=== PATIENT | male | born 1980 | race Caucasian/White ===

== ENCOUNTER 2018-12-18 01:08 | Emergency (ER) | payer BC, MEDICAID ==
[~2018-12-18] VITALS: Ht 167.6 cm; Wt 79.4 kg
[2018-12-18 01:28] LABS: BASOPHILS # (AUTO) 0.1 /CMM (0.0-0.2); BASOPHILS % (AUTO) 0.9 % (0.0-2.0); HEMATOCRIT 46 % (39-51); HEMOGLOBIN 15.6 g/dL (13.5-17.5); LYMPHOCYTES # (AUTO) 2.7 /CMM (0.8-4.8); LYMPHOCYTES % (AUTO) 33.9 % (20.0-44.0); MEAN CORPUSCULAR HGB CONC 34 g/dl (31.0-36.0); MEAN CORPUSCULAR VOLUME 91 fL (80-96); MONOCYTES # (AUTO) 0.8 /CMM (0.1-1.30); MONOCYTES % (AUTO) 10.3 % (2.0-12.0); NEUTROPHILS # (AUTO) 4.3 /CMM (1.8-8.9); NEUTROPHILS % (AUTO) 52.9 % (43.0-81.0); PLATELET COUNT (AUTO) 257 /CMM (150-450); RED BLOOD CELL COUNT(AUTO) 5.05 MIL/uL (4.5-6.0); WHITE BLOOD COUNT (AUTO) 8.1 K/uL (4.3-11.0)
[2018-12-18 01:34] LABS: CALCIUM, SERUM 8.8 mg/dL (8.5-10.1); CREATININE 1.4 mg/dL (0.6-1.3); POTASSIUM 3.7 mmol/L (3.5-5.1)
--- NOTE | 2018-12-18 01:37 | NUR ---
PBIBS C/C SUDDEN L FLANK PAIN X1HR AGO, -N/V. NO HX OF STONES. LAWS DRAWN AT BEDSIDE, AWAITING MED EVAL
[2018-12-18 01:40] LABS: ALBUMIN 3.7 g/dL (3.4-5.0); BILIRUBIN,DIRECT 0.1 mg/dL (0.0-0.2); BILIRUBIN,TOTAL 0.2 mg/dL (0.2-1.0); TOTAL PROTEIN, SERUM 7.4 g/dL (6.4-8.2)
[2018-12-18 02:11] LABS: APPEARANCE,URINE Slightly Cloudy (CLEAR); BILIRUBIN,URINE Negative (NEGATIVE); BLOOD, URINE Large Ery/uL (NEGATIVE); COLOR,URINE Yellow (YELLOW); KETONES,URINE Trace (NEGATIVE); LEUKOCYTE ESTERASE ,URINE Negative (NEGATIVE); NITRITE, URINE Negative (NEGATIVE); PH,URINE 5.5 (5.0-8.0); PROTEIN,URINE 30 mg/dl (NEGATIVE); UGLUCOSE Negative (NEGATIVE)
[2018-12-18 02:37] LABS: BACTERIA,URINE Few /HPF (None Seen); RBC,URINE TOO NUMEROUS TO COUN /HPF (0-2); SQUAMOUS EPITHELIAL CELL,UR Rare /HPF (None Seen)
[2018-12-18] MEDS ORDERED: KETOROLAC TROMETHAMINE 15 MG/ML VIAL ONE (02:59)
[2018-12-18] MEDS ORDERED: KETOROLAC TROMETHAMINE INJ 30 MG/ML VIAL IV ONE (03:00)
[2018-12-18] MEDS ORDERED: IV NS 0.9% 1,000 ML BAG IV ONE (03:00)
--- NOTE | 2018-12-18 03:45 | NUR ---
PT TAKEN TO CT
[2018-12-18 05:00] VITALS: BP 112/12
--- NOTE | 2018-12-18 05:05 | NUR ---
Patient discharged to home in stable condition. Written and verbal after care instructions given. Patient verbalizes understanding of instruction.
== END 2018-12-18 05:05 | disposition home or self-care (01) ==
LOC: ER 01:10
DX: N13.2 Hydronephrosis with renal and ureteral calculous obstruction (principal); R10.9 Unspecified abdominal pain
CPT/HCPCS: 36415; 74176; 80048; 80076; 81001; 83690; 85025; 96374; 99284; J1885; J7030; 81000-TC

== ENCOUNTER 2020-05-15 23:03 | Emergency (ER) | payer BC ==
[~2020-05-15] VITALS: Ht 167.6 cm; Wt 79.4 kg
--- NOTE | 2020-05-16 | NUR ---
TO ER [facility] AMBULATORY C/O R SIDED BACK PAIN WITH PAIN AND BURNING UPON URINATION SINCE LAST NIGHT. PT AAOX4 NO ACUTE DISTRESS NOTED, RESP EVEN AND UNLABORED. URINE SAMPLE COLLECTED AND SENT TO LAB. PENDING ER MD KAUFFMAN.
--- NOTE | 2020-05-16 00:20 | NUR ---
LABS COLLECTED, SENT TO LAB.
[2020-05-16] MEDS ORDERED: KETOROLAC TROMETHAMINE INJ 30 MG/ML VIAL IV ONE (00:30)
[2020-05-16] MEDS ORDERED: HYDROMORPHONE 1 MG/1 ML DISP.SYRIN IV ONE (00:30)
--- NOTE | 2020-05-16 00:30 | NUR ---
PT MEDICATED BY REINALDO JOYCE PER CELI REDDY ORDER.
[2020-05-16] MEDS ORDERED: HYDROMORPHONE 1 MG/1 ML DISP.SYRIN ONE (00:31)
[2020-05-16] MEDS ORDERED: KETOROLAC TROMETHAMINE INJ 30 MG/ML VIAL ONE (00:31)
[2020-05-16 00:36] LABS: BASOPHILS # (AUTO) 0.1 /CMM (0.0-0.2); BASOPHILS % (AUTO) 0.9 % (0.0-2.0); EOSINOPHILS % (AUTO) 2.9 % (0.0-6.0); HEMATOCRIT 46 % (39-51); HEMOGLOBIN 15.6 g/dL (13.5-17.5); LYMPHOCYTES # (AUTO) 2.4 /CMM (0.8-4.8); LYMPHOCYTES % (AUTO) 42.1 % (20.0-44.0); MEAN CORPUSCULAR HGB CONC 34 g/dl (31.0-36.0); MEAN CORPUSCULAR VOLUME 92 fL (80-96); MONOCYTES # (AUTO) 0.6 /CMM (0.1-1.30); NEUTROPHILS # (AUTO) 2.5 /CMM (1.8-8.9); NEUTROPHILS % (AUTO) 44.1 % (43.0-81.0); PLATELET COUNT (AUTO) 238 /CMM (150-450); RED BLOOD CELL COUNT(AUTO) 4.95 MIL/uL (4.5-6.0); WHITE BLOOD COUNT (AUTO) 5.8 K/uL (4.3-11.0)
[2020-05-16 00:39] LABS: BILIRUBIN,URINE Negative (NEGATIVE); COLOR,URINE YELLOW (YELLOW); LEUKOCYTE ESTERASE ,URINE Negative (NEGATIVE); NITRITE, URINE Negative (NEGATIVE); PROTEIN,URINE Negative (NEGATIVE); UGLUCOSE Negative (NEGATIVE); UROBILINOGEN,URINE 0.2 EU/dL (0.2)
--- NOTE | 2020-05-16 00:39 | NUR ---
URINE COLLECTED, SENT TO LAB.
[2020-05-16 00:50] LABS: CALCIUM, SERUM 8.5 mg/dL (8.5-10.1); CREATININE 1.7 mg/dL (0.6-1.3); POTASSIUM 4.1 mmol/L (3.5-5.1)
[2020-05-16 01:06] LABS: BACTERIA,URINE None seen /HPF (None Seen); SQUAMOUS EPITHELIAL CELL,UR Rare /HPF (None Seen); WBC,URINE 0-2 /HPF (0-3)
--- NOTE | 2020-05-16 01:07 | NUR ---
US AT BEDSIDE
--- NOTE | 2020-05-16 02:23 | NUR ---
IV removed. Catheter intact and site benign. Pressure and 4x4 applied to site. No bleeding noted.
--- NOTE | 2020-05-16 02:23 | NUR ---
Patient discharged to home in stable condition. Written and verbal after care instructions given. Patient verbalizes understanding of instruction and RX. Pt ambulated out of E.D. VSS. Denies pain.
[2020-05-16 02:24] VITALS: BP 128/68
== END 2020-05-16 02:25 | disposition home or self-care (01) ==
LOC: ER 23:11
DX: N13.2 Hydronephrosis with renal and ureteral calculous obstruction (principal)
CPT/HCPCS: 36415; 76770; 80048; 81001; 85025; 96374; 96375; 99284; J1170; J1885

== ENCOUNTER 2020-07-06 22:07 | Emergency (ER) | payer BC ==
[~2020-07-06] VITALS: Ht 167.6 cm; Wt 81.6 kg
--- NOTE | 2020-07-06 22:22 | NUR ---
PT BIBSELF C/O CHEST PAIN SINCE THIS MORNING. DESCRIBES PAIN PRESSURE, CONSTANT, AND RADIATING TO BILATERAL LOWER RIBS, WORSE WITH INSPIRATION. PT AAOX4. VITAL SIGNS STABLE. RESPIRATIONS EVEN AND UNLABORED. SKIN WARM AND INTACT. AMBULATORY WITH STEADY GAIT. NO ACUTE DISTRESS NOTED AT THIS TIME. PLACED IN GOWN AND ON CONTINUOUS ASSEMBLY OPERATOR AND PULSE OX, WILL CONTINUE TO MONITOR
--- NOTE | 2020-07-06 22:28 | NUR ---
RADIOLOGY AT BEDSIDE FOR CXR
--- NOTE | 2020-07-06 22:30 | NUR ---
IV INITIATED RAC 18G. LABS DRAWN FROM SITE. VP CARDIOVASCULAR SERVICE LINE AT BEDSIDE FOR COLLECTION. IV INTACT AND PATENT, PLACED ON SALINE LOCK
[2020-07-06 22:38] LABS: BASOPHILS # (AUTO) 0.1 /CMM (0.0-0.2); BASOPHILS % (AUTO) 1.1 % (0.0-2.0); EOSINOPHILS % (AUTO) 0.7 % (0.0-6.0); HEMATOCRIT 49 % (39-51); LYMPHOCYTES # (AUTO) 1.5 /CMM (0.8-4.8); LYMPHOCYTES % (AUTO) 15.4 % (20.0-44.0); MEAN CORPUSCULAR HGB CONC 33 g/dl (31.0-36.0); MEAN CORPUSCULAR VOLUME 92 fL (80-96); MONOCYTES # (AUTO) 0.5 /CMM (0.1-1.30); MONOCYTES % (AUTO) 5.1 % (2.0-12.0); NEUTROPHILS # (AUTO) 7.4 /CMM (1.8-8.9); NEUTROPHILS % (AUTO) 77.7 % (43.0-81.0); PLATELET COUNT (AUTO) 304 /CMM (150-450); RED BLOOD CELL COUNT(AUTO) 5.32 MIL/uL (4.5-6.0); WHITE BLOOD COUNT (AUTO) 9.5 K/uL (4.3-11.0)
[2020-07-06 22:48] LABS: CALCIUM, SERUM 8.4 mg/dL (8.5-10.1); CARBON DIOXIDE 29 mmol/L (21-32); CHLORIDE 104 mmol/L (98-107); CREATININE 1.2 mg/dL (0.6-1.3); GLUCOSE 92 mg/dL (74-106); POTASSIUM 3.8 mmol/L (3.5-5.1); SODIUM SERUM 141 mmol/L (136-145); UREA NITROGEN, BLOOD 18 mg/dL (7-18)
[2020-07-06] MEDS ORDERED: ASPIRIN 325 MG TABLET PO ONE (23:00)
[2020-07-06 23:01] LABS: ALANINE AMINOTRANSFERASE 85 U/L (12-78); ALBUMIN 3.5 g/dL (3.4-5.0); ALKALINE PHOSPHATASE 51 U/L (46-116); ASPARTATE AMINOTRANSFERASE 41 U/L (15-37); B-TYPE NATRIURETIC PEPTIDE 10 PG/ML (0-125); BILIRUBIN,DIRECT 0.1 mg/dL (0.0-0.2); BILIRUBIN,TOTAL 0.4 mg/dL (0.2-1.0); TOTAL PROTEIN, SERUM 7.3 g/dL (6.4-8.2)
[2020-07-06] MEDS ORDERED: ASPIRIN 325 MG TABLET ONE (23:05)
--- NOTE | 2020-07-06 23:21 | NUR ---
IV removed. Catheter intact and site benign. Pressure and 4x4 applied to site. No bleeding noted.
--- NOTE | 2020-07-06 23:21 | NUR ---
Patient discharged to home in stable condition. Written and verbal after care instructions given. Patient verbalizes understanding of instruction.
[2020-07-06 23:31] VITALS: BP 121/86
== END 2020-07-06 23:31 | disposition home or self-care (01) ==
LOC: ER 22:13
DX: R07.89 Other chest pain (principal)
CPT/HCPCS: 36415; 71045-TC; 80048-TC; 80076-TC; 83880; 84484-TC; 85025-TC; 85730-TC

== ENCOUNTER 2020-07-16 19:07 | Emergency (ER) | payer BC ==
[~2020-07-16] VITALS: Ht 167.6 cm; Wt 86.6 kg
--- NOTE | 2020-07-16 19:20 | NUR ---
PT BIBSELF C/O RLQ PAIN THAT RADIATES TO RT FLANK. PT AAOX4. PT BREATHING EVENLY AND UNLABORED. PT STATES HE HAS HX OF KIDNEY STONES AND THE PAIN STARTED 40MIN AGO. PT SKIN WARM, DRY, AND INTACT. UPON ASSESSMENT PT MOANING AND HOLDING HIS LEFT SIDE. 18G RT AC IV INITATED. BLOOD OBTAINED AND SENT TO LAB. ATTACHED TO MONITOR AND POX. GIVEN BLANKET AND CALL LIGHT WITHIN REACH
--- NOTE | 2020-07-16 19:20 | NUR ---
Note undone in EDM - 07/16/20 at 1936 by TIFFANIE PT BIBSELF C/O RLQ PAIN THAT RADIATES TO RT FLANK. PT AAOX4. PT STATES HE HAS HX OF KIDNEY STONES AND THE PAIN STARTED 40MIN AGO. PT SKIN WARM, DRY, AND INTACT. UPON ASSESSMENT PT MOANING AND HOLDING HIS LEFT SIDE. 18G RT AC IV INITATED. BLOOD OBTAINED AND SENT TO LAB. ATTACHED TO MONITOR AND POX. GIVEN BLANKET AND CALL LIGHT WITHIN REACH
[2020-07-16] MEDS ORDERED: ONDANSETRON HCL/PF 4 MG/2 ML VIAL ONE (19:22)
[2020-07-16] MEDS ORDERED: MORPHINE SULFATE INJ 4 MG/ML DISP.SYRIN ONE (19:22)
--- NOTE | 2020-07-16 19:28 | NUR ---
US AT BEDSIDE
[2020-07-16 19:30] LABS: BASOPHILS # (AUTO) 0.1 /CMM (0.0-0.2); BASOPHILS % (AUTO) 1.1 % (0.0-2.0); EOSINOPHILS % (AUTO) 10.9 % (0.0-6.0); HEMATOCRIT 47 % (39-51); HEMOGLOBIN 15.8 g/dL (13.5-17.5); LYMPHOCYTES # (AUTO) 2.7 /CMM (0.8-4.8); LYMPHOCYTES % (AUTO) 26.4 % (20.0-44.0); MEAN CORPUSCULAR HGB CONC 33 g/dl (31.0-36.0); MEAN CORPUSCULAR VOLUME 91 fL (80-96); MONOCYTES # (AUTO) 0.8 /CMM (0.1-1.30); MONOCYTES % (AUTO) 7.6 % (2.0-12.0); NEUTROPHILS # (AUTO) 5.4 /CMM (1.8-8.9); PLATELET COUNT (AUTO) 315 /CMM (150-450); RED BLOOD CELL COUNT(AUTO) 5.21 MIL/uL (4.5-6.0); WHITE BLOOD COUNT (AUTO) 10.1 K/uL (4.3-11.0)
[2020-07-16] MEDS ORDERED: ONDANSETRON HCL/PF 4 MG/2 ML VIAL IVP ONE (19:30)
[2020-07-16] MEDS ORDERED: MORPHINE SULFATE INJ 2 MG/ML DISP.SYRIN IV ONE (19:30)
[2020-07-16] MEDS ORDERED: IV NS 0.9% 1,000 ML BAG IV ONE (19:30)
[2020-07-16 19:36] LABS: CALCIUM, SERUM 9.1 mg/dL (8.5-10.1); CREATININE 1.6 mg/dL (0.6-1.3); POTASSIUM 4.1 mmol/L (3.5-5.1)
[2020-07-16 19:42] LABS: ALBUMIN 3.7 g/dL (3.4-5.0); BILIRUBIN,DIRECT 0.1 mg/dL (0.0-0.2); BILIRUBIN,TOTAL 0.4 mg/dL (0.2-1.0)
[2020-07-16] MEDS ORDERED: HYDROMORPHONE 1 MG/1 ML DISP.SYRIN ONE (19:58)
[2020-07-16] MEDS ORDERED: KETOROLAC TROMETHAMINE 15 MG/ML VIAL ONE (19:58)
[2020-07-16] MEDS ORDERED: HYDROMORPHONE 1 MG/1 ML DISP.SYRIN IM ONE (20:00)
[2020-07-16] MEDS ORDERED: KETOROLAC TROMETHAMINE INJ 30 MG/ML VIAL IV ONE (20:00)
--- NOTE | 2020-07-16 20:50 | NUR ---
URINE OBTAINED AND SENT TO LAB
[2020-07-16 21:07] LABS: BILIRUBIN,URINE Negative (NEGATIVE); COLOR,URINE YELLOW (YELLOW); LEUKOCYTE ESTERASE ,URINE Negative (NEGATIVE); NITRITE, URINE Negative (NEGATIVE); PROTEIN,URINE 100 mg/dl (NEGATIVE); UGLUCOSE Negative (NEGATIVE)
[2020-07-16 21:22] LABS: BACTERIA,URINE Rare /HPF (None Seen); RBC,URINE 21-50 /HPF (0-2); SQUAMOUS EPITHELIAL CELL,UR Few /HPF (None Seen); WBC,URINE NONE SEEN /HPF (0-3)
[2020-07-16] MEDS ORDERED: ACET-2605 PO (22:03)
[2020-07-16] MEDS ORDERED: TAMS-12 PO (22:03)
[2020-07-16] MEDS ORDERED: TRAM50TA2 PO (22:03)
--- NOTE | 2020-07-16 22:26 | NUR ---
Patient discharged to home in stable condition. Written and verbal after care instructions given. Patient verbalizes understanding of instruction.IV removed. Catheter intact and site benign. Pressure and 4x4 applied to site. No bleeding noted. Pt ambulatory with a steady gait
[2020-07-16 22:38] VITALS: BP 140/79
== END 2020-07-16 22:26 | disposition home or self-care (01) ==
LOC: ER 19:09
DX: N23 Unspecified renal colic (principal); Z87.442 Personal history of urinary calculi; Z79.899 Other long term (current) drug therapy
CPT/HCPCS: 36415; 76770; 80048; 80076; 81001; 83690; 85025; 96361; 96372; 96374; 96375; 99285; J1170; J1885; J2270; J2405; J7030

== ENCOUNTER 2020-07-20 15:00 | Emergency (ER) | payer BC ==
[~2020-07-20] VITALS: Ht 167.6 cm; Wt 86.6 kg
[2020-07-20 15:00] VITALS: BP 138/82
[~2020-07-20 15:00] MED LIST: ACET-2605 PO; TAMS-12 PO; TRAM50TA2 PO
--- NOTE | 2020-07-20 15:35 | NUR ---
SEEN AND EXAMINED BY .
[2020-07-20] MEDS ORDERED: KETOROLAC TROMETHAMINE INJ 30 MG/ML VIAL ONE (15:41)
--- NOTE | 2020-07-20 15:50 | NUR ---
MASTER FIRE CONTROL TECHNICIAN AT BEDSIDE FOR XRAY.
[2020-07-20] MEDS ORDERED: KETOROLAC TROMETHAMINE INJ 30 MG/ML VIAL IM ONE (16:00)
--- NOTE | 2020-07-20 17:22 | NUR ---
Patient discharged to home in stable condition. Written and verbal after care instructions given. Patient verbalizes understanding of instruction.
== END 2020-07-20 17:22 | disposition home or self-care (01) ==
LOC: ER 15:03
DX: M13.831 Other specified arthritis, right wrist (principal); Z87.442 Personal history of urinary calculi; Z79.899 Other long term (current) drug therapy
CPT/HCPCS: 73110; 96372; 99283; J1885

== ENCOUNTER 2020-08-10 19:56 | Emergency (ER) | payer BC ==
[~2020-08-10] VITALS: Ht 167.6 cm; Wt 88.5 kg
--- NOTE | 2020-08-10 20:20 | NUR ---
THE PATIENT BIBSELF FOR C/O R FLANK PAIN, - HEMATURIA OR DYSURIA. PMH OF RENAL STONE. THE PATIENT RATES PAIN /10. DENIES SOB. RESPIRATION REGULAR AND UNLABORED. THE PATIENT IS PLACED ON MONITOR. WARM BLANKET PROVDIED FOR COMFORT. WILL CONTINUE TO MONITOR.
[2020-08-10] MEDS ORDERED: ONDANSETRON HCL/PF 4 MG/2 ML VIAL ONE (20:48)
[2020-08-10] MEDS ORDERED: MORPHINE SULFATE INJ 2 MG/ML DISP.SYRIN ONE (20:48)
[2020-08-10] MEDS ORDERED: KETOROLAC TROMETHAMINE 15 MG/ML VIAL ONE (20:48)
[2020-08-10] MEDS ORDERED: KETOROLAC TROMETHAMINE INJ 30 MG/ML VIAL IV ONE (21:00)
[2020-08-10] MEDS ORDERED: MORPHINE SULFATE INJ 2 MG/ML DISP.SYRIN IV ONE (21:00)
[2020-08-10] MEDS ORDERED: ONDANSETRON HCL/PF - ER 4 MG/2 ML VIAL IV ONE (21:00)
[2020-08-10] MEDS ORDERED: IV NS 0.9% 1,000 ML IV ONE (21:00)
--- NOTE | 2020-08-10 21:00 | NUR ---
BLOOD COLLECTED AND TAKEN IT TO THE LAB
--- NOTE | 2020-08-10 21:01 | NUR ---
URINE COLLECTED AND TAKEN IT TO THE LAB
[2020-08-10 21:09] LABS: BASOPHILS % (AUTO) 0.5 % (0.0-2.0); EOSINOPHILS % (AUTO) 5.2 % (0.0-6.0); HEMATOCRIT 47 % (39-51); HEMOGLOBIN 15.6 g/dL (13.5-17.5); LYMPHOCYTES % (AUTO) 11.4 % (20.0-44.0); MEAN CORPUSCULAR HGB CONC 33 g/dl (31.0-36.0); MEAN CORPUSCULAR VOLUME 89 fL (80-96); MONOCYTES # (AUTO) 0.4 /CMM (0.1-1.30); MONOCYTES % (AUTO) 4.8 % (2.0-12.0); NEUTROPHILS # (AUTO) 6.8 /CMM (1.8-8.9); NEUTROPHILS % (AUTO) 78.1 % (43.0-81.0); PLATELET COUNT (AUTO) 254 /CMM (150-450); RED BLOOD CELL COUNT(AUTO) 5.29 MIL/uL (4.5-6.0); WHITE BLOOD COUNT (AUTO) 8.7 K/uL (4.3-11.0)
[2020-08-10 21:22] LABS: BILIRUBIN,URINE SMALL (NEGATIVE); COLOR,URINE RED (YELLOW); LEUKOCYTE ESTERASE ,URINE NEGATIVE (NEGATIVE); NITRITE, URINE NEGATIVE (NEGATIVE); PH,URINE 6.5 (5.0-8.0); PROTEIN,URINE TRACE mg/dl (NEGATIVE); UGLUCOSE NEGATIVE (NEGATIVE)
[2020-08-10 21:23] LABS: BACTERIA,URINE Few /HPF (None Seen); RBC,URINE TOO NUMEROUS TO COUN /HPF (0-2); SQUAMOUS EPITHELIAL CELL,UR Few /HPF (None Seen); WBC,URINE 0-2 /HPF (0-3)
[2020-08-10 21:25] LABS: ALBUMIN 3.4 g/dL (3.4-5.0); BILIRUBIN,DIRECT 0.2 mg/dL (0.0-0.2); BILIRUBIN,TOTAL 0.5 mg/dL (0.2-1.0); CALCIUM, SERUM 8.8 mg/dL (8.5-10.1); CREATININE 1.2 mg/dL (0.6-1.3); POTASSIUM 4.2 mmol/L (3.5-5.1); TOTAL PROTEIN, SERUM 7.2 g/dL (6.4-8.2)
[2020-08-10] MEDS ORDERED: IBUP-1955 PO (21:35)
[2020-08-10] MEDS ORDERED: HYDR-4275 PO (21:36)
[2020-08-10] MEDS ORDERED: TAMS-12 PO (21:37)
--- NOTE | 2020-08-10 21:47 | NUR ---
The patient alert and oriented x4. Denies pain. Respiration regular and unlabored. Denies SOB. Patient discharged to home in stable condition. Written and verbal after care instructions given. Patient verbalizes understanding of instruction. The patient left ER in stable condition.
[2020-08-10 21:49] VITALS: BP 132/85
== END 2020-08-10 21:50 | disposition home or self-care (01) ==
LOC: ER 19:58
DX: N23 Unspecified renal colic (principal); Z87.442 Personal history of urinary calculi; Z79.899 Other long term (current) drug therapy
CPT/HCPCS: 36415; 76770; 80048; 80076; 81001; 83690; 85025; 96361; 96374; 96375; 99284; J1885; J2270; J2405; J7030

== ENCOUNTER 2020-08-11 10:26 | Emergency (ER) | payer BC ==
[~2020-08-11] VITALS: Ht 167.6 cm; Wt 88.5 kg
[~2020-08-11 10:26] MED LIST changes: +HYDR-4275 PO; +IBUP-1955 PO
[2020-08-11] MEDS ORDERED: ONDANSETRON HCL/PF 4 MG/2 ML VIAL ONE (10:45)
[2020-08-11] MEDS ORDERED: HYDROMORPHONE 1 MG/1 ML DISP.SYRIN ONE (10:45)
[2020-08-11] MEDS ORDERED: KETOROLAC TROMETHAMINE 15 MG/ML VIAL ONE (10:45)
--- NOTE | 2020-08-11 10:45 | NUR ---
c/o RLQ pain, was here last ngiht for same reason, 10/10 pain scale. Patient a/ox4, breathing even and unlabored, no sob noted, changed into a gown. Kept comfortable.
[2020-08-11] MEDS ORDERED: HYDROMORPHONE INJ 2 MG/ML DISP.SYRIN IV ONE (11:00)
[2020-08-11] MEDS ORDERED: IV NS 0.9% 1,000 ML BAG IV ONE (11:00)
[2020-08-11] MEDS ORDERED: ONDANSETRON HCL/PF 4 MG/2 ML VIAL IVP ONE (11:00)
[2020-08-11] MEDS ORDERED: KETOROLAC TROMETHAMINE INJ 30 MG/ML VIAL IV ONE (11:00)
--- NOTE | 2020-08-11 12:09 | NUR ---
PATIENT A/OX4, BREATHING EVEN AND UNLABORED, NO SOB NOTED. PATIENT DENIES PAIN AT THIS TIME. CT RESULT PROVIDED. IV removed. Catheter intact and site benign. Pressure and 4x4 applied to site. No bleeding noted.
--- NOTE | 2020-08-11 12:30 | NUR ---
Patient discharged to home in stable condition. Written and verbal after care instructions given. Patient verbalizes understanding of instruction.
[2020-08-11 12:54] VITALS: BP 128/77
== END 2020-08-11 12:55 | disposition home or self-care (01) ==
LOC: ER 10:26
DX: N13.2 Hydronephrosis with renal and ureteral calculous obstruction (principal); Z79.899 Other long term (current) drug therapy
CPT/HCPCS: 74176; 96361; 96374; 96375; 99284; J1170; J1885; J2405; J7030

== ENCOUNTER 2020-09-30 10:11 | Emergency (ER) | payer BC ==
[~2020-09-30] VITALS: Ht 172.7 cm; Wt 81.6 kg
--- NOTE | 2020-09-30 10:25 | NUR ---
FROM HOME, C/O RIGHT FLANK PAIN SINCE 0600 H/O KIDNEY STONE. PATIENT A/OX4, BREATHING EVEN AND UNLABORED, NO SOB NOTED.
--- NOTE | 2020-09-30 10:26 | NUR ---
DR POOL AT BEDSIDE FOR EVAL.
[2020-09-30] MEDS ORDERED: KETOROLAC TROMETHAMINE INJ 30 MG/ML VIAL IV ONE (10:30)
[2020-09-30] MEDS ORDERED: ONDANSETRON HCL/PF 4 MG/2 ML VIAL IVP ONE (10:30)
[2020-09-30] MEDS ORDERED: IV NS 0.9% 1,000 ML BAG IV ONE (10:30)
[2020-09-30] MEDS ORDERED: KETOROLAC TROMETHAMINE 15 MG/ML VIAL ONE (10:35)
[2020-09-30] MEDS ORDERED: ONDANSETRON HCL/PF 4 MG/2 ML VIAL ONE (10:35)
[2020-09-30 10:51] LABS: EOSINOPHILS % (AUTO) 2.8 % (0.0-6.0); HEMATOCRIT 47 % (39-51); HEMOGLOBIN 16.1 g/dL (13.5-17.5); LYMPHOCYTES # (AUTO) 1.7 /CMM (0.8-4.8); MEAN CORPUSCULAR HGB CONC 34 g/dl (31.0-36.0); MEAN CORPUSCULAR VOLUME 86 fL (80-96); MONOCYTES # (AUTO) 0.4 /CMM (0.1-1.30); MONOCYTES % (AUTO) 9.7 % (2.0-12.0); NEUTROPHILS # (AUTO) 2.1 /CMM (1.8-8.9); NEUTROPHILS % (AUTO) 47.5 % (43.0-81.0); PLATELET COUNT (AUTO) 199 /CMM (150-450); RED BLOOD CELL COUNT(AUTO) 5.49 MIL/uL (4.5-6.0); WHITE BLOOD COUNT (AUTO) 4.4 K/uL (4.3-11.0)
[2020-09-30 11:05] LABS: CALCIUM, SERUM 8.5 mg/dL (8.5-10.1); CREATININE 1.6 mg/dL (0.6-1.3); POTASSIUM 4.2 mmol/L (3.5-5.1)
[2020-09-30 11:17] LABS: ALBUMIN 3.5 g/dL (3.4-5.0); BILIRUBIN,DIRECT 0.1 mg/dL (0.0-0.2); BILIRUBIN,TOTAL 0.3 mg/dL (0.2-1.0); TOTAL PROTEIN, SERUM 6.8 g/dL (6.4-8.2)
[2020-09-30] MEDS ORDERED: MORPHINE SULFATE INJ 2 MG/ML DISP.SYRIN IV ONE (11:30)
[2020-09-30] MEDS ORDERED: MORPHINE SULFATE INJ 4 MG/ML DISP.SYRIN ONE (11:33)
[2020-09-30 12:22] LABS: BILIRUBIN,URINE Negative (NEGATIVE); COLOR,URINE YELLOW (YELLOW); LEUKOCYTE ESTERASE ,URINE Negative (NEGATIVE); NITRITE, URINE Negative (NEGATIVE); PH,URINE 5.5 (5.0-8.0); PROTEIN,URINE 30 mg/dl (NEGATIVE); UGLUCOSE Negative (NEGATIVE); UROBILINOGEN,URINE 0.2 EU/dL (0.2)
[2020-09-30 12:32] LABS: BACTERIA,URINE Rare /HPF (None Seen); SQUAMOUS EPITHELIAL CELL,UR Rare /HPF (None Seen); WBC,URINE 0-2 /HPF (0-3)
--- NOTE | 2020-09-30 13:30 | NUR ---
Patient discharged to home in stable condition. Written and verbal after care instructions given. Patient verbalizes understanding of instruction.IV removed. Catheter intact and site benign. Pressure and 4x4 applied to site. No bleeding noted.
[2020-09-30 13:31] VITALS: BP 134/95
== END 2020-09-30 13:32 | disposition home or self-care (01) ==
LOC: ER 10:14
DX: N20.0 Calculus of kidney (principal); Z60.2 Problems related to living alone; Z79.899 Other long term (current) drug therapy
CPT/HCPCS: 36415; 80048; 80076; 81001; 83690; 85025; 96361; 96374; 96375; 99284; J1885; J2270; J2405; J7030

== ENCOUNTER 2021-02-02 12:57 | Emergency (ER) | payer BC, MEDICAID ==
[~2021-02-02] VITALS: Ht 167.6 cm; Wt 90.7 kg
--- NOTE | 2021-02-02 13:40 | NUR ---
THE PATIENT BISB FOR C/O ON & OFF RIGHT FOOT PAIN X 1 MONTH. RATES PAIN 5/10. DENIES NUMBNESS/TINGLING IN THE EXTREMITY. WILL CONTINUE TO MONITOR THE PATIENT.
[2021-02-02] MEDS ORDERED: DICL50TA7 PO (15:49)
--- NOTE | 2021-02-02 15:52 | NUR ---
Patient discharged to home in stable condition. Written and verbal after care instructions given. Patient verbalizes understanding of instruction.
[2021-02-02 15:53] VITALS: BP 120/72
== END 2021-02-02 15:53 | disposition home or self-care (01) ==
LOC: ER 13:02
DX: M25.571 Pain in right ankle and joints of right foot (principal); Z60.2 Problems related to living alone; Z87.442 Personal history of urinary calculi; Z79.899 Other long term (current) drug therapy; X50.1XXA Overexertion from prolonged static or awkward postures, initial encounter; Y93.89 Activity, other specified; Y92.89 Other specified places as the place of occurrence of the external cause; Y99.8 Other external cause status
CPT/HCPCS: 73610-TC

== ENCOUNTER 2021-02-18 22:40 | Emergency (ER) | payer MEDICAID ==
[~2021-02-18] VITALS: Ht 167.6 cm; Wt 90.7 kg
[~2021-02-18 22:40] MED LIST changes: +DICL50TA7 PO
--- NOTE | 2021-02-18 22:46 | NUR ---
BIBS FOR C/O LOWER BACK PAIN STARTED AT THE GYM WHILE PULLING WEIGHTAT 1300. MOTRIN 800MG TAKEN 4 HRS TORNADO CHASER.
[2021-02-18] MEDS ORDERED: MORPHINE SULFATE INJ 2 MG/ML DISP.SYRIN ONE (22:56)
[2021-02-18] MEDS: MORPHINE SULFATE INJ 2 MG/ML DISP.SYRIN IM ONE (23:07)
--- NOTE | 2021-02-18 23:10 | NUR ---
LITIGATION SUPPORT ANALYST AT BEDSIDE
[2021-02-19] MEDS ORDERED: NAPR-1164 PO (00:30)
[2021-02-19] MEDS ORDERED: CYCL10TA9 PO (00:30)
--- NOTE | 2021-02-19 00:35 | NUR ---
Patient discharged to home in stable condition. rx Written and verbal after care instructions given. Patient verbalizes understanding of instruction. pt ambulatory with a steady gait. pt a/ox4
[2021-02-19 00:43] VITALS: BP 134/79
== END 2021-02-19 00:44 | disposition home or self-care (01) ==
LOC: ER 22:46
DX: S39.012A Strain of muscle, fascia and tendon of lower back, initial encounter (principal); Z87.442 Personal history of urinary calculi; Z60.2 Problems related to living alone; Z79.899 Other long term (current) drug therapy; X58.XXXA Exposure to other specified factors, initial encounter; Y93.89 Activity, other specified; Y92.89 Other specified places as the place of occurrence of the external cause; Y99.8 Other external cause status
CPT/HCPCS: 72100; 96372; 99283; J2270

== ENCOUNTER 2022-04-27 19:50 | Emergency (ER) | payer MEDICAID ==
[~2022-04-27] VITALS: Ht 167.6 cm; Wt 83.9 kg
[~2022-04-27 19:50] MED LIST changes: +CYCL10TA9 PO; +NAPR-1164 PO
--- NOTE | 2022-04-27 20:11 | NUR ---
PT BIBSELF C/O LEFT SIDED FACE NUMBNESS SINCE YESTERDAY. PT AAOX4 BREATHING EVENNLY AND UNLABORED. PT ATTACHED TO MONITOR AND POX. PT STATES THAT HE IS HAVING PROBLEMS WITH HIS BOSS AND HE STARTED FEELING THE NUMBNESS AFTER A DISCUSSION WITH HIM. WILL CONTINUE TO MONITOR.
--- NOTE | 2022-04-27 20:34 | NUR ---
Patient discharged to home in stable condition. Written and verbal after care instructions given. Patient verbalizes understanding of instruction. PT ambulatory with a steady gait
[2022-04-27 20:45] VITALS: BP 130/67
== END 2022-04-27 20:34 | disposition home or self-care (01) ==
LOC: ER 19:57
DX: R20.2 Paresthesia of skin (principal); Z87.442 Personal history of urinary calculi; Z60.2 Problems related to living alone; Z79.899 Other long term (current) drug therapy

== ENCOUNTER 2022-08-21 10:49 | Emergency (ER) | payer MEDICAID ==
[~2022-08-21] VITALS: Ht 167.6 cm; Wt 82.6 kg
[2022-08-21 12:58] LABS: BASOPHILS % (AUTO) 0.6 % (0.0-2.0); EOSINOPHILS % (AUTO) 4.6 % (0.0-6.0); HEMATOCRIT 50 % (39-51); HEMOGLOBIN 16.3 g/dL (13.5-17.5); LYMPHOCYTES # (AUTO) 0.9 K/uL (0.8-4.8); LYMPHOCYTES % (AUTO) 12.2 % (20.0-44.0); MEAN CORPUSCULAR HGB CONC 33 g/dl (31.0-36.0); MEAN CORPUSCULAR VOLUME 90 fL (80-96); MONOCYTES # (AUTO) 0.7 K/uL (0.1-1.30); MONOCYTES % (AUTO) 9.7 % (2.0-12.0); NEUTROPHILS # (AUTO) 5.3 K/uL (1.8-8.9); NEUTROPHILS % (AUTO) 72.9 % (43.0-81.0); PLATELET COUNT (AUTO) 193 K/uL (150-450); RED BLOOD CELL COUNT(AUTO) 5.55 MIL/uL (4.5-6.0); WHITE BLOOD COUNT (AUTO) 7.3 K/uL (4.3-11.0)
[2022-08-21 13:18] LABS: CALCIUM, SERUM 8.5 mg/dL (8.5-10.1); CARBON DIOXIDE 27 mmol/L (21-32); CHLORIDE 104 mmol/L (98-107); CREATININE 1.3 mg/dL (0.6-1.3); GLUCOSE 97 mg/dL (74-106); POTASSIUM 4.3 mmol/L (3.5-5.1); SODIUM SERUM 136 mmol/L (136-145); UREA NITROGEN, BLOOD 12 mg/dL (7-18)
[2022-08-21 13:30] LABS: ALANINE AMINOTRANSFERASE 24 U/L (12-78); ALBUMIN 3.4 g/dL (3.4-5.0); ALKALINE PHOSPHATASE 82 U/L (46-116); ASPARTATE AMINOTRANSFERASE 17 U/L (15-37); BILIRUBIN,DIRECT 0.1 mg/dL (0.0-0.2); BILIRUBIN,TOTAL 0.4 mg/dL (0.2-1.0); TOTAL PROTEIN, SERUM 6.8 g/dL (6.4-8.2)
[2022-08-21] MEDS ORDERED: PRED50TA PO (13:37)
[2022-08-21] MEDS ORDERED: ALBU8.5H8 INH (13:37)
--- NOTE | 2022-08-21 14:39 | NUR ---
covid swab collected lab called for picked edge sewing machine operator.
--- NOTE | 2022-08-21 14:43 | NUR ---
Patient discharged to home in stable condition. Written and verbal after care instructions given. Patient verbalizes understanding of instruction.
[2022-08-21 14:46] VITALS: BP 120/83
== END 2022-08-21 14:48 | disposition home or self-care (01) ==
LOC: ER 10:54
DX: J40 Bronchitis, not specified as acute or chronic (principal); Z87.442 Personal history of urinary calculi; Z79.899 Other long term (current) drug therapy; Z20.822 Contact with and (suspected) exposure to COVID-19; Z60.2 Problems related to living alone
CPT/HCPCS: 99285; 71045; 87426; 93005; 85025; 80048; 80076; 36415; 84484; 83880; C9803

== ENCOUNTER 2022-09-05 09:02 | Emergency (ER) | payer MEDICAID ==
[~2022-09-05] VITALS: Ht 167.6 cm; Wt 79.4 kg
[~2022-09-05 09:02] MED LIST changes: +ALBU8.5H8 INH; +PRED50TA PO
--- NOTE | 2022-09-05 09:15 | NUR ---
C/O LEFT FLANK PAIN X 30 MINS AGO. PT HAS HX OF KIDNEY STONES.
[2022-09-05] MEDS ORDERED: ONDANSETRON HCL/PF 4 MG/2 ML VIAL ONE (09:17)
[2022-09-05] MEDS ORDERED: KETOROLAC TROMETHAMINE INJ 30 MG/ML VIAL ONE (09:17)
[2022-09-05] MEDS ORDERED: MORPHINE SULFATE INJ 4 MG/ML DISP.SYRIN ONE (09:17)
--- NOTE | 2022-09-05 09:18 | NUR ---
IV ESTABLISHED L AC 18G. LABS DRAWN AND COLLECTED AT BEDSIDE.
--- NOTE | 2022-09-05 09:26 | NUR ---
PT UNABLE TO URINATE AT THIS TIME, URINAL AT BEDSIDE
[2022-09-05 09:27] LABS: BASOPHILS # (AUTO) 0.1 K/uL (0.0-0.2); BASOPHILS % (AUTO) 1.1 % (0.0-2.0); EOSINOPHILS % (AUTO) 2.2 % (0.0-6.0); HEMATOCRIT 50 % (39-51); HEMOGLOBIN 16.5 g/dL (13.5-17.5); LYMPHOCYTES # (AUTO) 2.2 K/uL (0.8-4.8); LYMPHOCYTES % (AUTO) 34.4 % (20.0-44.0); MEAN CORPUSCULAR HGB CONC 33 g/dl (31.0-36.0); MEAN CORPUSCULAR VOLUME 89 fL (80-96); MONOCYTES # (AUTO) 0.6 K/uL (0.1-1.30); MONOCYTES % (AUTO) 9.9 % (2.0-12.0); NEUTROPHILS # (AUTO) 3.3 K/uL (1.8-8.9); NEUTROPHILS % (AUTO) 52.4 % (43.0-81.0); PLATELET COUNT (AUTO) 252 K/uL (150-450); RED BLOOD CELL COUNT(AUTO) 5.57 MIL/uL (4.5-6.0); WHITE BLOOD COUNT (AUTO) 6.3 K/uL (4.3-11.0)
[2022-09-05] MEDS ORDERED: MORPHINE SULFATE INJ 2 MG/ML DISP.SYRIN IV ONE (09:30)
[2022-09-05] MEDS ORDERED: IV NS 0.9% 500 ML BAG IV ONE (09:30)
[2022-09-05] MEDS ORDERED: KETOROLAC TROMETHAMINE INJ 30 MG/ML VIAL IV ONE (09:30)
[2022-09-05] MEDS ORDERED: ONDANSETRON HCL/PF 4 MG/2 ML VIAL IVP ONE (09:30)
[2022-09-05 10:05] LABS: CALCIUM, SERUM 8.7 mg/dL (8.5-10.1); CREATININE 1.2 mg/dL (0.6-1.3); POTASSIUM 3.7 mmol/L (3.5-5.1)
[2022-09-05] MEDS ORDERED: IBUP-1957 PO (10:16)
[2022-09-05] MEDS ORDERED: HYDR-3980 PO (10:16)
[2022-09-05] MEDS ORDERED: TAMS-12 PO (10:16)
[2022-09-05 10:48] VITALS: BP 128/74
--- NOTE | 2022-09-05 10:48 | NUR ---
IV removed. Catheter intact and site benign. Pressure and 4x4 applied to site. No bleeding noted.Patient discharged to home in stable condition. Written and verbal after care instructions given. Patient verbalizes understanding of instruction.
== END 2022-09-05 10:48 | disposition home or self-care (01) ==
LOC: ER 09:05
DX: N23 Unspecified renal colic (principal); Z87.442 Personal history of urinary calculi; Z79.899 Other long term (current) drug therapy; Z60.2 Problems related to living alone
CPT/HCPCS: 99284; 96374; 96375; 96361; 85025; 80048; J2270; J1885; J2405; J7040

== ENCOUNTER 2023-05-14 01:06 | Emergency (ER) | payer MEDICAID, OTHER ==
[~2023-05-14] VITALS: Ht 162.6 cm; Wt 83.9 kg
[~2023-05-14 01:06] MED LIST changes: +HYDR-3980 PO; +IBUP-1957 PO
[2023-05-14 02:05] VITALS: BP 131/79; TEMP 97.8; O2SAT 98
== END 2023-05-14 02:33 | disposition home or self-care (01) ==
LOC: ER 01:08
DX: H92.03 Otalgia, bilateral (principal); Z87.442 Personal history of urinary calculi; Z79.899 Other long term (current) drug therapy; Z60.2 Problems related to living alone

== ENCOUNTER 2023-09-24 20:46 | Emergency (ER) | payer MEDICAID, OTHER ==
[~2023-09-24] VITALS: Ht 167.6 cm; Wt 88.5 kg
[2023-09-24] MEDS: ASPIRIN 81 MG TAB.CHEW PO ONE (21:03)
[2023-09-24] MEDS ORDERED: ASPIRIN 81 MG TAB.CHEW ONE (21:03)
[2023-09-24 21:31] LABS: BASOPHILS # (AUTO) 0.1 K/uL (0.0-0.2); BASOPHILS % (AUTO) 1.1 % (0.0-2.0); EOSINOPHILS # (AUTO) 0.2 K/uL (0.0-0.7); EOSINOPHILS % (AUTO) 1.7 % (0.0-6.0); HEMATOCRIT 46 % (39-51); HEMOGLOBIN 15.3 g/dL (13.5-17.5); LYMPHOCYTES # (AUTO) 1.8 K/uL (0.8-4.8); LYMPHOCYTES % (AUTO) 18.4 % (20.0-44.0); MEAN CORPUSCULAR HEMOGLOBIN 29 PG (26.0-33.0); MEAN CORPUSCULAR HGB CONC 33 g/dl (31.0-36.0); MEAN CORPUSCULAR VOLUME 87 fL (80-96); MONOCYTES # (AUTO) 0.7 K/uL (0.1-1.30); MONOCYTES % (AUTO) 7.4 % (2.0-12.0); NEUTROPHILS # (AUTO) 6.8 K/uL (1.8-8.9); NEUTROPHILS % (AUTO) 71.4 % (43.0-81.0); PLATELET COUNT (AUTO) 314 K/uL (150-450); RED BLOOD CELL COUNT(AUTO) 5.28 MIL/uL (4.5-6.0); RED CELL DISTRIBUTION WIDTH 15.9 % (11.5-15.0); WHITE BLOOD COUNT (AUTO) 9.6 K/uL (4.3-11.0)
[2023-09-24 21:40] LABS: ALANINE AMINOTRANSFERASE 110 U/L (12-78); ALKALINE PHOSPHATASE 74 U/L (46-116); ASPARTATE AMINOTRANSFERASE 59 U/L (15-37); BILIRUBIN,DIRECT 0.4 mg/dL (0.0-0.2); BILIRUBIN,TOTAL 0.7 mg/dL (0.2-1.0); CARBON DIOXIDE 30 mmol/L (21-32); CHLORIDE 104 mmol/L (98-107); CREATININE 1.4 mg/dL (0.6-1.3); GLUCOSE 77 mg/dL (74-106); POTASSIUM 4.1 mmol/L (3.5-5.1); SODIUM SERUM 141 mmol/L (136-145); TOTAL PROTEIN, SERUM 6.8 g/dL (6.4-8.2); UREA NITROGEN, BLOOD 14 mg/dL (7-18)
[2023-09-25 00:48] VITALS: BP 132/84; TEMP 98; O2SAT 97
== END 2023-09-25 00:48 | disposition home or self-care (01) ==
LOC: ER 20:46
DX: R07.2 Precordial pain (principal); Z87.442 Personal history of urinary calculi; Z60.2 Problems related to living alone; Z20.822 Contact with and (suspected) exposure to COVID-19
CPT/HCPCS: 36415; 71045-TC; 80048-TC; 80076-TC; 84484-TC; 85025-TC